=== PATIENT | male | born 1960 | race Caucasian/White ===

== ENCOUNTER 2020-02-24 12:24 | Emergency (ER) | payer BC ==
[2020-02-24 12:30] VITALS: BMI 31.6
[2020-02-24] MEDS ORDERED: BAMLANIVIMAB 700 MG in SODIUM CHLORIDE 180 ML IVPB ONE (12:36)
[2020-02-24 14:23] LABS: BASO % 0.7 % (0-2.0); EOS % 2.8 % (0-4.5); HEMATOCRIT 45.8 % (35.4-49); HEMOGLOBIN 15.3 GM/dL (11.7-16.9); MCH 30.2 pg (25.7-33.7); MCHC 33.3 g/dl (32.0-35.9); MEAN CELL VOLUME 90.7 fl (80-96); MEAN PLT VOLUME 8.2 fl (7.5-11.1); MONO % 22.6 % (3.8-10.2); NEUT % 46.9 % (42.8-82.8); PLATELET COUNT 240 K/MM3 (134-434); RBC 5.05 M/mm3 (4.00-5.60); RDW 14.2 % (11.9-15.9); WHITE BLOOD COUNT 3.6 K/mm3 (4.0-10.0)
[2020-02-24 14:43] LABS: POTASSIUM 5.2 mmol/L (3.5-5.1)
[2020-02-24 14:45] LABS: CALCIUM 9.1 mg/dL (8.5-10.1)
[2020-02-24 14:46] LABS: BLOOD UREA NITROGEN 11.4 mg/dL (7-18)
[2020-02-24 14:49] LABS: CREATININE 0.9 mg/dL (0.55-1.3)
[2020-02-24 14:50] LABS: TOT PROT 7.4 g/dl (6.4-8.2)
[2020-02-24 14:52] LABS: ANISOCYTOSIS 2+; BILIRUBIN,TOTAL 1.1 mg/dL (0.2-1); MACROCYTOSIS 0; PLATELET ESTIMATE NORMAL
[2020-02-24 17:14] VITALS: BP 142/78; PULSE 74; TEMP 98.5
== END 2020-02-24 18:00 | disposition home or self-care (01) ==
LOC: JER 12:24
DX: R68.83 Chills (without fever) (principal); R50.9 Fever, unspecified; R05 Cough
CPT/HCPCS: 36415; 80053; 85025; 99284-25; M0239; Q0239

== ENCOUNTER 2021-03-04 10:54 | Emergency (ER) | payer BC ==
[2021-03-04 11:30] VITALS: BP 150/89; PULSE 78; TEMP 98.1; BMI 32.5
== END 2021-03-04 12:30 | disposition home or self-care (01) ==
LOC: JER 10:54
DX: Z11.52 Encounter for screening for COVID-19 (principal)
CPT/HCPCS: 99283-25; C9803; U0003; U0005